=== PATIENT | female | born 1960 | race Caucasian/White ===

== ENCOUNTER 2016-09-16 11:20 | Outpatient (CLI) | payer OTHER ==
[2014-08-29 09:54] VITALS: BP 100/62
[2016-09-16 11:48] LABS: BASOPHILS % 0.2 (0.0-1.5); EOSINOPHILS % 2.2 % (0.0-6.8); LYMPHOCYTES # 1.2 # k/uL (0.6-4.0); MEAN CORPUSCULAR HEMOGLOBIN 29.1 pg (28.0-34.0); MONOCYTES # 0.2 # k/uL (0.0-0.9)
[2016-09-16 12:10] LABS: eGFR (African) > 60; eGFR (Non-African) > 60
== END 2016-09-16 11:30 ==
LOC: LAB 11:20
PROVIDERS: ATTEND Specialist
DX: Z51.81 Encounter for therapeutic drug level monitoring (principal); Z79.899 Other long term (current) drug therapy; G40.209 Localization-related (focal) (partial) symptomatic epilepsy and epileptic syndromes with complex partial seizures, not intractable, without status epilepticus; G31.84 Mild cognitive impairment of uncertain or unknown etiology
CPT/HCPCS: 36415; 80053; 80201; 84165; 85025; 86334

== ENCOUNTER 2016-11-06 10:43 | Outpatient (CLI) | payer OTHER ==
[2014-08-29 09:54] VITALS: BP 100/62
== END 2016-11-06 10:44 ==
LOC: LAB 10:43
PROVIDERS: ATTEND Specialist
DX: E03.9 Hypothyroidism, unspecified (principal)
CPT/HCPCS: 36415; 80177; 84443

== ENCOUNTER 2016-11-08 13:15 | Outpatient (CLI) | payer OTHER ==
[2014-08-29 09:54] VITALS: BP 100/62
== END 2016-11-08 13:16 ==
LOC: LABRHC 13:15
PROVIDERS: ATTEND Family Medicine
DX: Z01.419 Encounter for gynecological examination (general) (routine) without abnormal findings (principal)
CPT/HCPCS: 88148; G0143

== ENCOUNTER 2016-11-27 10:16 | Outpatient (CLI) | payer OTHER ==
[2014-08-29 09:54] VITALS: BP 100/62
[2016-12-03 19:11] LABS: T3 REVERSE 18.8 ng/dL (9.2-24.1)
== END 2016-11-27 10:17 ==
LOC: LAB 10:16
PROVIDERS: ATTEND Otolaryngology
DX: E03.9 Hypothyroidism, unspecified (principal)
CPT/HCPCS: 36415; 82784; 83516; 84439; 84481; 84482; 86376; 86800

== ENCOUNTER 2018-01-06 10:21 | Outpatient (CLI) | payer MEDICAID, MEDICARE, OTHER ==
[2014-08-29 09:54] VITALS: BP 100/62
[2018-01-06 10:47] LABS: BASOPHILS % 0.8 (0.0-1.5); EOSINOPHILS % 3.2 % (0.0-6.8); MEAN CORPUSCULAR HEMOGLOBIN 27.9 pg (28.0-34.0); MEAN CORPUSCULAR VOLUME 84.7 fl (80.0-100.0); MONOCYTES % 6.1 % (0.0-11.0); NEUTROPHILS # 3.2 # k/uL (1.4-7.7)
[2018-01-06 22:51] LABS: TOTAL PROTEIN 6.7 g/dL (6.0-8.5)
== END 2018-01-06 10:22 ==
LOC: LAB 10:21
PROVIDERS: ATTEND Family Medicine
DX: E78.00 Pure hypercholesterolemia, unspecified (principal); I10 Essential (primary) hypertension; Z79.899 Other long term (current) drug therapy; E55.9 Vitamin D deficiency, unspecified; E53.9 Vitamin B deficiency, unspecified; G60.3 Idiopathic progressive neuropathy
CPT/HCPCS: 36415; 80053; 80061; 82306; 82607; 83921; 85025